=== PATIENT | female | born 1995 ===

== ENCOUNTER 2017-10-02 09:33 | Emergency (ER) | payer OTHER ==
[2017-10-02 09:42] VITALS: BMI 23.4
[2017-10-02 09:44] VITALS: RESP 18
--- NOTE | 2017-10-02 10:25 | C.PDOC ---
History Of Present Illness 22 year old female presents to the emergency department with complaints of severe pelvic cramps associated with her period since this morning. Patient reports that every month she experiences very bad menstrual cramps, for which she usually takes Advil with relief. However, when she took 2 Advils today her symptoms persisted, so she came to the ED. She denies nausea, vomiting, diarrhea, dysuria, fever. Time Seen by Provider: 10/02/17 09:37 Chief Complaint (Nursing): Female Genitourinary History Per: Patient History/Exam Limitations: no limitations Onset/Duration Of Symptoms: Hrs Current Symptoms Are (Timing): Still Present Severity: Moderate Quality Of Discomfort: Cramping, "Pain" Associated Symptoms: denies: Fever, Vomiting, Diarrhea, Urinary Symptoms Abnormal Vaginal Bleeding: No Past Medical History Reviewed: Historical Data, Nursing Documentation, Vital Signs Vital Signs: Last Vital Signs Temp 98.3 F 10/02/17 10:43 Pulse 79 10/02/17 10:43 Resp 18 10/02/17 10:43 BP 108/72 10/02/17 10:43 Pulse Ox 100 10/02/17 10:55 - Medical History PMH: Asthma Surgical History: No Surg Hx Family History: States: No Known Family Hx - Social History Hx Alcohol Use: No Hx Substance Use: No Review Of Systems Constitutional: Negative for: Fever Gastrointestinal: Negative for: Vomiting, Diarrhea Genitourinary: Positive for: Pelvic Pain (cramps). Negative for: Dysuria, Vaginal Discharge Skin: Negative for: Rash Physical Exam - Physical Exam Appears: Well, Non-toxic, In Acute Distress (in moderate pain ), Other (tearful) Skin: Normal Color, Warm, Dry Head: Normacephalic Eye(s): bilateral: Normal Inspection Oral Mucosa: Moist Cardiovascular: Rhythm Regular Respiratory: Normal Breath Sounds, No Rales, No Rhonchi, No Wheezing Gastrointestinal/Abdominal: Bowel Sounds, Soft, Tenderness (suprapubic TTP), No Guarding, No Rebound, No Other ((-) McBurney's ) Back: Normal Inspection, No CVA Tenderness Neurological/Psych: Oriented x3 ED Course And Treatment O2 Sat by Pulse Oximetry: 100 (RA) Pulse Ox Interpretation: Normal Progress Note: Upreg POC ordered and reviewed, was negative. IM toradol ordered. Reevaluation Time: 10:40 Reassessment Condition: Improved (Patient reassessed, pain has resolved and she states she feels much better. On exam, abdomen is soft and nontender. Rx for Naprosyn given, and patient instructed to follow up with licensed funeral director within 1 week for further evaluation. She understands she should return to ED if symptoms worsen.) Disposition Counseled Patient/Family Regarding: Diagnosis, Need For Followup, Rx Given - Disposition Referrals: David Ogden MD [Family Provider] - [facility] [Outside] [facility] [Outside] Disposition: HOME/ ROUTINE Disposition Time: 10:40 Condition: STABLE Additional Instructions: FOLLOW UP WITH PORT TRAFFIC MANAGER WITHIN 1 WEEK FOR FURTHER EVALUATION USE MEDICATION NEEDED FOR PAIN, TAKE WITH FOOD RETURN TO ER IF SYMPTOMS WORSEN Prescriptions: Naproxen 375 mg PO BID PRN #20 tablet PRN Reason: pain Instructions: Menstrual Cramps (DC) Forms: [employer] (Polish) Print Language: MARSHALLESE - Clinical Impression Clinical Impression: Dysmenorrhea - Scribe Statement The provider has reviewed the documentation as recorded by the Scribe (Mike Whyte) Provider Attestation: All medical record entries made by the Scribe were at my direction and personally dictated by me. I have reviewed the chart and agree that the record accurately reflects my personal performance of the history, physical exam, medical decision making, and the department course for this patient. I have also personally directed, reviewed, and agree with the discharge instructions and disposition.
[2017-10-02 10:47] VITALS: BP 108/72; PULSE 79; TEMP 98.3
[2017-10-02 10:53] VITALS: O2SAT 100
== END 2017-10-02 10:43 | disposition home or self-care (01) ==
LOC: C.ER 09:33
DX: N94.6 Dysmenorrhea, unspecified (principal)
CPT/HCPCS: 96372; 99284; J1885